=== PATIENT | male | born 1980 | race Hispanic/Latino ===

== ENCOUNTER 2022-07-18 17:55 | Emergency (ER) | payer BC ==
[~2022-07-18] VITALS: Ht 157.5 cm; Wt 70.3 kg
[2022-07-18 18:00] VITALS: BP 142/76
== END 2022-07-18 19:09 | disposition home or self-care (01) ==
LOC: EDH 17:55
DX: U07.1 COVID-19 (principal)
CPT/HCPCS: 99283; 87635; 87804 ×2; C9803